=== PATIENT | female | born 1975 | race Caucasian/White ===

== ENCOUNTER 2021-01-01 08:13 | Observation (INO) ==
[2021-01-01] MEDS ORDERED: MAGNESIUM HYDROXIDE SUSP 30 ML UDC PO PRN (10:33)
[2021-01-01] MEDS ORDERED: ONDANSETRON INJ 2 MG/ML 2 ML VIAL IV PRN (10:33)
[2021-01-01] MEDS ORDERED: ACETAMINOPHEN 325 MG TAB PO PRN (10:33)
[2021-01-01] MEDS ORDERED: ALUMINUM/MAGNESIUM SUSP 30 ML UDC PO PRN (10:33)
[2021-01-01] MEDS ORDERED: NITROGLYCERIN SL 0.4 MG/TAB TAB SL PRN (10:33)
[2021-01-01] MEDS ORDERED: POLYETHYLENE (MIRALAX) 17 GM PACK PO PRN (10:33)
[2021-01-01] MEDS ORDERED: PATIENT'S HEIGHT AND/OR WEIGHT NEEDED SCH (10:45)
[2021-01-01] MEDS ORDERED: METOPROLOL SUCC 25MG EXT REL TAB PO SCH (10:45)
[2021-01-01] MEDS ORDERED: ASPIRIN 81 MG ECTAB PO SCH (10:45)
[2021-01-01] MEDS ORDERED: SODIUM CHLORIDE 0.9% 1000ML 1,000 ML IV SCH (10:45)
--- NOTE | 2021-01-01 10:58 | History & Physical Report ---
Date of Service January 01, 2021 Assessment & Plan (1) Chest pain: Presents with chest pressure associated with sinus tachycardia, subtle ST depressions inf-lat leads on outside ECG With recent abnormal dobutamine stress as outpt and progressive RIZZO since 06/2020 Risk factors of CAD are HTN, morbid obesity Initial troponin negative at -admit to PCU -plan for cardiac cath today -continue heparin gtt until cath -continue ASA 81mg daily -check serial trops -check lipid panel, HgbA1C -continue Toprol XL 100mg daily (Cardio notes say should be 100 bid but pt only taking it once daily?) -continue tele monitoring for ST, watch for tachyarrhythmias (2) Dyspnea: chronic and progressive since 06/2020 when she had COVID saw PULM as outpt and had normal PFTs as per pt Arnuity Ellipta was used but made no difference and has since been discontinued -may be cardiac related-cath today also may be related to ongoing anemia from menorrhagia (3) Paroxysmal supraventricular tachycardia: mintor on tele continue metoprolol-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[employer] (4) Anxiety: not currently on meds, recently stopped Trileptal as caused excessive lethargy (5) BMI 50.0-59.9, adult: BMI 55.7 Was being evaluated for gastric sleeve surgery as outpt (6) Depression: as above in Anxiety (7) Fatty infiltration of liver: needs weight loss follow LFTs (8) GERD (gastroesophageal reflux disease): continue PPI (9) Hypertension: BPs elevated here continue metoprolol hold HCTZ for now for cath (10) Hypoglycemia: reports this at home follow venous glucose here in AM (11) Hypothyroidism (acquired): TSH 4 in 08/2020 no longer taking LT4 (12) Incisional hernia: not incarcerated on exam here has plans for surgical fixation after gastric sleeve as outpt (13) Mixed hyperlipidemia: not on meds check lipid panel (14) Vitamin B12 deficiency: [id number] replacement (15) Vitamin D deficiency: continue replacement as outpt (16) Menorrhagia: was previously on norethindrone but now not due to concern for VTE has plans for hysterectomy after gastric sleeve and hernia repair (17) Anemia: hgb here 10, MCV 82 secondary to meorrhagia contnue ferrous sulfate, Vit C, follows with [facility] may also consider EGD/colonoscopy as outpt (18) DVT prophylaxis: SCDs Dispo-admit to PCU Admission and Anticipated Discharge Date Admission Date: January 01, 2021 History of Present Illness Chief Complaint: Chest pressure Primary Care Provider: Martha Singh, DO This pt is a 45 yo female with a h/o morbid obesity, ?SVT, chronic and progressive RIZZO, PAOLA on CPAP, HTN, hypoglycemia, hypothyroidism not on LT4 replacement, anx/depression, prediabetes, Vit B12 deficiency, GERD, Fe-def anemia 2/2 menorrhagia, who presents as a direct transfer from [facility] for chest pressure and ST depressions in inferior leads on ECG in setting of recently abnormal outpatient dobutamine stress test. SHe reports since having COVID 6 months ago, she has had worsening RIZZO and also has been undergoing preop workup for a gastric sleeve surgery. She had an outpt dobutamine stress in 11/[address] depressions in lateral leads and ST elevation in aVR but no WMAs. She was scheduled for outpt cardiac cath on January 11, but early this AM woke up and started having a rapid heart rate which she reports has been ongoing and intermittent since having COVID. She had an associated central chest pressure, nausea, diaphoresis, and dyspnea. SHe was given NTG, Fentanyl, and ASA 325mg and transferred here. Those interventions mostly relieved her pain but upon arrival here she still had 1/10 chest pressure. She was also on a heparin gtt upon arrival. Allergies Allergy/AdvReac Type Severity Reaction Status Date / Time codeine Allergy Verified 09/21/20 08:29 erythromycin base Allergy Verified 09/21/20 08:29 Home Medications Medication Instructions Recorded Confirmed Type ascorbic acid (vitamin C) 500 mg 500 mg PO DAILY tab 01/18/19 01/01/21 History tablet cholecalciferol (vitamin D3) 1,250 50,000 units PO WEEKLY tab 01/18/19 01/01/21 History mcg (50,000 unit) tablet cyanocobalamin (vitamin B-12) 500 500 mcg PO BID #180 tab 01/18/19 01/01/21 Rx mcg tablet duloxetine 60 mg capsule,delayed 60 mg PO DAILY cap 01/18/19 01/01/21 History release blood-glucose meter #1 ea 12/13/19 09/21/20 Rx lancing device with lancets kit #1 ea 12/13/19 09/21/20 Rx blood sugar diagnostic #100 ea 12/16/19 09/21/20 Rx lancets 33 gauge #100 12/16/19 09/21/20 Rx ferrous sulfate 325 mg PO BID 01/01/21 01/01/21 History hydrochlorothiazide 12.5 mg PO DAILY 01/01/21 01/01/21 History metoprolol succinate 100 mg PO DAILY 01/01/21 01/01/21 History omeprazole 20 mg PO QAM 01/01/21 01/01/21 History Past Med/Surg History Medical History (Updated 01/01/21 @ 12:02 by Christal Pizarro MD) Abdominal pain, LUQ Anemia Anxiety Blood glucose abnormal Cervical pain (neck) Depression Gastric ulcer, unspecified as acute or chronic, without hemorrhage or perforation GERD (gastroesophageal reflux disease) History of hypoglycemia History of osteoarthritis History of scoliosis Hypertension Hypoglycemia Hypothyroidism (acquired) Incisional hernia Menorrhagia Paroxysmal supraventricular tachycardia Prediabetes Vitamin D deficiency Surgical History H/O section x2 H/O hernia repair unbilical Hx of cholecystectomy S/P appendectomy S/P tonsillectomy and adenoidectomy Family History Mother Family history of cardiac disorder Diabetes Hypertension Myocardial infarction Grandmother (Maternal) Family history of cardiac disorder Diabetes Lymphoma Grandmother (Paternal) Diabetes Hypertension Breast cancer Father Diabetes Hypertension Lung cancer Aunt Lymphoma maternal Breast cancer paternal Denies family history of Colon cancer Ovarian cancer Prostate cancer Social History Smoking Status: Never smoker Second Hand Exposure: Yes; Hx Alcohol Use: No Hx Substance Use: No Preferred Language: Fijian Communication Ability: Effective Visual Impairment: No Limitations Hearing Ability: Normal Hood Fitter Required: No Beliefs That Will Affect Care: None marital status: Single Current Living Situation: Family Current Living Situation Comment: 2 children current occupational status: unemployed How many Children do You have: 2 Other Information That Helps Us Care for You: No Feels Safe at Home: Yes Childhood Exposure to Second-Hand Smoke: Yes Diet Comment: Well balanced. caffeine: Yes during the past year weight has: remained stable Dental Care, Regularly: Yes Physical Activity Frequency: 1-2 Times per Week Seatbelt Use: always Sunscreen Use: Yes Assistive Devices: CPAP Review of Systems Review of Systems: All systems reviewed & are unremarkable except as noted in HPI & below Ongoing metromenorrhagia No blood in stool, no changes in bowel habits No fevers/chills Physical Exam Constitutional: WD/WN, vitals as above + morbidly obese Eyes: + anicteric sclerae ENMT: Ears: no hearing impairment Neck: trachea midline, no thyromegaly Respiratory: normal respiratory effort, lungs clear to auscultation Cardiovascular: RRR, no murmur, no edema Chest (Breasts): Chest: normal inspection of chest Gastrointestinal (Abdomen): Inspection/Auscultation: normal bowel sounds; + abdomen abnormal to inspection (large visible hernia RLQ) and abdomen not distended Percussion/Palpation: abdomen soft; abdomen nontender Musculoskeletal: Extremities: extremities normal to inspection; no cyanosis and no clubbing Skin: no rashes, warm and dry Neurologic: moves all extremities and awake; no focal motor deficits Psychiatric: A+Ox3, euthymic affect Lymphatic: no lymphedema Results & Data Results & Data ([facility]) Vital Signs (Past 12 Hours) Vital Signs Temp Resp BP Pulse Ox 01/01/21 10:08 37.2 C 16 138/84 96 Laboratory Results 01/01/21 01/01/21 01/01/21 Range/Units 11:23 11:23 11:23 WBC (4.8-10.8) K/uL RBC (4.2-5.4) M/uL Hgb (12.0-16.0) g/dL Hct (37-47) % MCV (80-100) fL MCH (25-34) pg MCHC (32-36) g/dL RDW Std Deviation (36.4-46.3) fL RDW Coeff of Rhona (11.5-14.5) % Plt Count (130-400) K/uL MPV (7.4-10.4) fL Immature Gran % (Auto) % Neut % (Auto) % Lymph % (Auto) % [place]ro[place]ois % (Auto) % Eos % (Auto) % Baso % (Auto) % Neut # (Auto) (1.4-6.5) K/uL Lymph # (Auto) (1.2-3.4) K/uL [place] # (Auto) (0.11-0.59) K/uL Eos # (Auto) (0-0.5) K/uL Baso # (Auto) (0-0.2) K/uL Immature Gran # (Auto) (0.00-0.02) K/uL APTT 28.4 (21.0-31.0) Seconds PTT Ratio 1.1 Sodium Pending Potassium Pending Chloride Pending Carbon Dioxide Pending Anion Gap Pending BUN Pending Creatinine Pending Est Cr Clr Drug Dosing Pending Est GFR ( Amer) Pending Est GFR (Non-Af Amer) Pending BUN/Creatinine Ratio Pending Glucose Pending Estimat Average Glucose Pending Hemoglobin A1c Pending Calcium Pending Magnesium Pending Total Bilirubin Pending AST Pending ALT Pending Alkaline Phosphatase Pending Troponin I Pending Total Protein Pending Albumin Pending Globulin Pending Albumin/Globulin Ratio Pending Triglycerides Pending Cholesterol Pending LDL Cholesterol, Calc Pending VLDL Cholesterol, Calc Pending HDL Cholesterol Pending Cholesterol/HDL Ratio Pending 01/01/21 Range/Units 11:23 WBC 9.52 (4.8-10.8) K/uL RBC 4.03 L (4.2-5.4) M/uL Hgb 10.9 L (12.0-16.0) g/dL Hct 33.4 L (37-47) % MCV 82.9 (80-100) fL MCH 27.0 (25-34) pg MCHC 32.6 (32-36) g/dL RDW Std Deviation 45.4 (36.4-46.3) fL RDW Coeff of Rhona 14.9 H (11.5-14.5) % Plt Count 302 (130-400) K/uL MPV 9.7 (7.4-10.4) fL Immature Gran % (Auto) 0.5 % Neut % (Auto) 82.0 % Lymph % (Auto) 13.3 % [place]quois % (Auto) 2.7 % Eos % (Auto) 1.2 % Baso % (Auto) 0.3 % Neut # (Auto) 7.80 H (1.4-6.5) K/uL Lymph # (Auto) 1.27 (1.2-3.4) K/uL [place]ois # (Auto) 0.26 (0.11-0.59) K/uL Eos # (Auto) 0.11 (0-0.5) K/uL Baso # (Auto) 0.03 (0-0.2) K/uL Immature Gran # (Auto) 0.05 H (0.00-0.02) K/uL APTT (21.0-31.0) Seconds PTT Ratio Sodium Potassium Chloride Carbon Dioxide Anion Gap BUN Creatinine Est Cr Clr Drug Dosing Est GFR ( Amer) Est GFR (Non-Af Amer) BUN/Creatinine Ratio Glucose Estimat Average Glucose Hemoglobin A1c Calcium Magnesium Total Bilirubin AST ALT Alkaline Phosphatase Troponin I Total Protein Albumin Globulin Albumin/Globulin Ratio Triglycerides Cholesterol LDL Cholesterol, Calc VLDL Cholesterol, Calc HDL Cholesterol Cholesterol/HDL Ratio Diagnostic Findings CXR report from [facility]-normal ECG Additional Comments: ECG at [facility] reviewed-ST, rate 114, mild ST depression inferolat leads Code Status & VTE Plan Code Status FULL CODE VTE Prophylaxis Plan VTE Prophylaxis will be ordered: Yes PG Care Time/CCT Total # of Minutes Spent Total Time Spent with Patient: Total time spent is greater than 50% in coordination of care (as documented) at patient's floor/unit and/or counseling patient: Coding Level of Care Code 43248 Initial Inpt Care Lvl 3 Diagnoses Chest pain R07.9 Dyspnea R06.00 Paroxysmal supraventricular tachycardia I47.1 Anxiety F41.9 BMI 50.0-59.9, adult Z68.43 Depression F32.9 Fatty infiltration of liver K76.0 GERD (gastroesophageal reflux disease) K21.9 Hypertension I10 Hypoglycemia E16.2 Hypothyroidism (acquired) E03.9 Incisional hernia K43.2 Mixed hyperlipidemia E78.2 Vitamin B12 deficiency E53.8 Vitamin D deficiency E55.9 Menorrhagia N92.0 Anemia D64.9 DVT prophylaxis Z29.9
[2021-01-01] MEDS ORDERED: DULoxetine HCL 30 MG CAP PO SCH (11:00)
[2021-01-01] MEDS ORDERED: FLUTICASONE FUROATE 100MCG 14 PUFFS/INHALER INH SCH (11:00)
[2021-01-01 11:38] LABS: Basophils # (auto) 0.03 K/uL (0-0.2); Basophils % (auto) 0.3 %; Eosinophils # (auto) 0.11 K/uL (0-0.5); Eosinophils % (auto) 1.2 %; Hematocrit (blood only) 33.4 % (37-47); Hemoglobin 10.9 g/dL (12.0-16.0); Immature Granulocytes # (auto) 0.05 K/uL (0.00-0.02); Immature Granulocytes % (auto) 0.5 %; Lymphocytes # (auto) 1.27 K/uL (1.2-3.4); Lymphocytes % (auto) 13.3 %; Mean Corpuscular Hgb Conc 32.6 g/dL (32-36); Mean Corpuscular Volume 82.9 fL (80-100); Mean Platelet Volume 9.7 fL (7.4-10.4); Monocytes # (auto) 0.26 K/uL (0.11-0.59); Monocytes % (auto) 2.7 %; Platelet Count 302 K/uL (130-400); RDW Coefficient of Variation 14.9 % (11.5-14.5); RDW Standard Deviation 45.4 fL (36.4-46.3); Red Blood Count 4.03 M/uL (4.2-5.4); White Blood Count 9.52 K/uL (4.8-10.8)
[2021-01-01 11:47] LABS: Partial Thromboplastin Ratio 1.1; Partial Thromboplastin Time 28.4 Seconds (21.0-31.0)
[2021-01-01] MEDS ORDERED: niCARdipine HCL INJ 2.5 MG/ML 10 ML AMP ONE (11:48)
[2021-01-01] MEDS ORDERED: HEPARIN (PORCINE) 1000 UNIT/ML 10 ML (CATH LAB USE ONLY) ONE (11:48)
[2021-01-01] MEDS ORDERED: fentaNYL citrate 100 MCG/2 ML VIAL ONE (11:49)
[2021-01-01] MEDS ORDERED: NITROGLYCERIN/D5W 100MCG/ML 20ML SYR ONE (11:49)
[2021-01-01] MEDS ORDERED: MIDAZOLAM HCL 1 MG/ML 2ML VIAL ONE (11:49)
[2021-01-01 11:55] LABS: Estimated Average Glucose 126 mg/dl
[2021-01-01 12:02] LABS: Alanine Aminotransferase 25 U/L (12-78); Albumin Level 3.3 gm/dl (3.4-5.0); Aspartate Aminotransferase 18 U/L (15-37); BUN Creatinine Ratio 16.3 (10-20); Blood Urea Nitrogen 11 mg/dl (7-18); Calcium 8.9 mg/dl (8.5-10.1); Carbon Dioxide 26 mmol/L (21-32); Chloride 108 mmol/L (98-107); Creatinine Clr Calc Pharmacy 146.5 ml/min; Est GFR (African American) 122.2 ml/min; Est GFR (Non-African American) 105.4 ml/min; Glucose 97 mg/dl (70-99); Potassium 3.8 mmol/L (3.5-5.1); Sodium 139 mmol/L (136-145)
[2021-01-01 12:05] LABS: Albumin Globulin Ratio 0.8 (0.9-2); Alkaline Phosphatase 98 U/L (45-117); Bilirubin,Total 0.3 mg/dl (0.2-1); Chol HDL Ratio 4; Cholesterol 184 mg/dl (0-200); Globulin 3.9 gm/dl (2.5-4.0); HDL Cholesterol 48 mg/dl; LDL Cholesterol Calculated 98 mg/dl; Total Protein 7.2 gm/dl (6.4-8.2); Triglycerides 191 mg/dl (0-150); Troponin I < 0.015 ng/ml (0-0.045); VLDL Cholesterol 38 mg/dl
--- NOTE | 2021-01-01 12:22 | Pre Anesthesia Assessment ---
Date of Service January 01, 2021 Pre Sedation Assessment Vital Signs Temp Pulse Resp BP Pulse Ox 01/01/21 11:39 106 H 18 144/95 H 98 01/01/21 10:08 99.0 F 16 138/84 96 Cardiovascular RRR, no murmur, no edema Respiratory normal respiratory effort, lungs clear to auscultation Pre-Sedation Airway Assessment Smoking Status: Never smoker Hx Sleep Apnea: Yes Hx Difficult Intubation: No Short, Thick Neck: No Thyromental Distance: > or= 3.5 Finger Breadths Oral Cavity: + WNL Mallampati Class: III ASA: ASA2 NPO Status Date of Last Intake of Fluids: 01/01/21 Time of Last Intake of Fluids: 07:00 Date of Last Intake of Solid Food: 12/31/20 Time of Last Intake of Solid Foods: 19:00 Procedure Planning Contraindications for Sedation: none Current Medications Reviewed: Yes Notes The planned sedation has been discussed with the patient. Informed Consent was obtained. I have identified the patient, determined the appropriateness of sedation and have assessed the patient immediately prior to the procedure. All medicine(s) and interventions are by my order.
--- NOTE | 2021-01-01 13:21 | Cardiology Consultation ---
Date of Consultation January 01, 2021 Assessment & Plan (1) Chest pain: 2. Paroxysmal SVT 3. Iron deficiency anemia 4. Hypertension 5. Obesity/PAOLA/prediabetes Patient reportedly with abnormal stress test recently and was to undergo cardiac catheterization. Here today with chest tightness in the setting of tachycardia. Concern for ACS versus symptomatic SVT. Plan to proceed with cardiac catheterization. Further recommendations pending findings. History of Present Illness Attending Physician: Roberto Yun History of Present Illness Ms. Mohan is a 45-year-old woman with a history of SVT, prior abnormal stress test transferred to [facility] for cardiac catheterization in the setting of chest tightness this morning. Other medical history notable for hypertension, obesity, prediabetes, obstructive sleep apnea on CPAP, depression degenerative disc disease/low back pain, iron deficiency anemia in the setting of menorrhagia, multiple hernias. SVT has been a longstanding issue but worse since June 2020 after Covid infection. Reports baseline heart rate elevated into the 100s with heart rates up in the 120s with minimal exertion. She was in high. With her heart rate will go up into the 180s with some associated chest tightness. Metoprolol increased from 50 to 100 mg daily. Was scheduled to get a cardiac cath in January. This morning states she was feeling unwell. When got up heart rate again up to the 180s and felt chest tightness. Symptoms persisted until presented to [place] ED. Improved with nitroglycerin, metoprolol. Has been chest pain- free since. ECG reportedly showed inferior ST depressions. Recent cardiac testing: Echo 11/2020: LVEF 55%, no wall motion abnormalities, estimated PASP 33, mild MR Family history: Mother had heart failure diagnosed in her 50s or 60s. Brother in his 60s recently had a pacemaker implanted. Social history: Quit smoking 18 years ago. She is on disability for chronic back issues. Previously in nursing. Allergies Allergy/AdvReac Type Severity Reaction Status Date / Time codeine Allergy Verified 09/21/20 08:29 erythromycin base Allergy Verified 09/21/20 08:29 Home Medications Medication Instructions Recorded Confirmed Type ascorbic acid (vitamin C) 500 mg 500 mg PO DAILY tab 01/18/19 01/01/21 History tablet cholecalciferol (vitamin D3) 1,250 50,000 units PO WEEKLY tab 01/18/19 01/01/21 History mcg (50,000 unit) tablet cyanocobalamin (vitamin B-12) 500 500 mcg PO BID #180 tab 01/18/19 01/01/21 Rx mcg tablet duloxetine 60 mg capsule,delayed 60 mg PO DAILY cap 01/18/19 01/01/21 History release blood-glucose meter #1 ea 12/13/19 09/21/20 Rx lancing device with lancets kit #1 ea 12/13/19 09/21/20 Rx blood sugar diagnostic #100 ea 12/16/19 09/21/20 Rx lancets 33 gauge #100 ea 12/16/19 09/21/20 Rx ferrous sulfate 325 mg PO BID 01/01/21 01/01/21 History hydrochlorothiazide 12.5 mg PO DAILY 01/01/21 01/01/21 History metoprolol succinate 100 mg PO DAILY 01/01/21 01/01/21 History omeprazole 20 mg PO QAM 01/01/21 01/01/21 History Patient History Medical History (Updated 01/01/21 @ 12:02 by Christal Pizarro MD) Abdominal pain, LUQ Anemia Anxiety Blood glucose abnormal Cervical pain (neck) Depression Gastric ulcer, unspecified as acute or chronic, without hemorrhage or perforation GERD (gastroesophageal reflux disease) History of hypoglycemia History of osteoarthritis History of scoliosis Hypertension Hypoglycemia Hypothyroidism (acquired) Incisional hernia Menorrhagia Paroxysmal supraventricular tachycardia Prediabetes Vitamin D deficiency Surgical History H/O section x2 H/O hernia repair unbilical Hx of cholecystectomy S/P appendectomy S/P tonsillectomy and adenoidectomy Family History Mother Family history of cardiac disorder Diabetes Hypertension Myocardial infarction Grandmother (Maternal) Family history of cardiac disorder Diabetes Lymphoma Grandmother (Paternal) Diabetes Hypertension Breast cancer Father Diabetes Hypertension Lung cancer Aunt Lymphoma maternal Breast cancer paternal Denies family history of Colon cancer Ovarian cancer Prostate cancer Social History Smoking Status: Never smoker Second Hand Exposure: Yes; Hx Alcohol Use: No Hx Substance Use: No Preferred Language: [place] Islander Communication Ability: Effective Visual Impairment: No Limitations Hearing Ability: Normal Arcgis Developer Required: No Beliefs That Will Affect Care: None marital status: Single Current Living Situation: Family Current Living Situation Comment: 2 children current occupational status: unemployed How many Children do You have: 2 Other Information That Helps Us Care for You: No Feels Safe at Home: Yes Childhood Exposure to Second-Hand Smoke: Yes Diet Comment: Well balanced. caffeine: Yes during the past year weight has: remained stable Dental Care, Regularly: Yes Physical Activity Frequency: 1-2 Times per Week Seatbelt Use: always Sunscreen Use: Yes Assistive Devices: CPAP Review of Systems Review of Systems: All systems reviewed & are unremarkable except as noted in HPI & below Physical Exam Physical Exam: General: Comfortable, no acute distress HEENT: Sclerae anicteric, mucous membranes moist Lungs: Clear to auscultation bilaterally, no rhonchi or wheezes Cardiac: Regular rate and rhythm, no murmurs. No JVD. Abdomen: Soft, nontender, nondistended, positive bowel sounds. Extremities: Warm, well perfused, no edema. 2+ radial pulses Skin: No rashes or lesions. Neuro: Nonfocal Psych: Alert orient x3, normal affect and mood Results & Data ([facility]) Vital Signs (Past 12 Hours) Vital Signs Temp Pulse Pulse Resp BP Pulse Ox 01/01/21 11:39 106 H 18 144/95 H 98 01/01/21 11:11 93 H 01/01/21 10:08 99.0 F 16 138/84 96 Laboratory Results ECG shows sinus rhythm, no ST abnormalities. PG Care Time/CCT Total # of Minutes Spent Total Time Spent with Patient: Total time spent is greater than 50% in coordination of care (as documented) at patient's floor/unit and/or counseling patient: Coding Level of Care Code 80123 Inpt Consult Level 4 Diagnoses Chest pain R07.9
--- NOTE | 2021-01-01 13:28 | Post Anesthesia Assessment ---
Date of Service January 01, 2021 Post Sedation Assessment Vital Signs Temp Pulse Pulse Resp BP Pulse Ox 01/01/21 13:15 86 16 134/80 98 01/01/21 13:00 86 16 151/84 H 98 01/01/21 11:39 106 H 18 144/95 H 98 01/01/21 11:11 93 H 01/01/21 10:08 99.0 F 16 138/84 96 Recovery Score Activity: Moves 4 extremities Respiration: Deep Breath/Cough Circulation: +/-20% PreAnes Value Consciousness: Fully Awake Oxygen Saturation: > 92% On Room Air Post Anesthesia Score: 10 Discharge Sedation Level of Care: Fast Track Phase II Post Sedation Plan On clinical assessment, the patient appears to have tolerated the sedation without complications. Patient is recovering as anticipated. Patient will continue to be monitored by nursing and may be discharged when sedation discharge criteria are met per below protocol. Upon Completions of procedure up to 15 minutes continue every 5 minute vital signs and the P.A.R. score; then discharge to a Phase I or Fast Track to Phase II per the following guidelines: * Discharge Patient to appropriate Phase II area if PAR is 8 or greater or return to pre- procedure baseline. The post - procedure orders will be as directed. * If PAR score is less than 8 or not return to pre-procedure baseline then patient will follow Phase I monitoring till PAR is reached for Phase II. The Phase I may be done in procedure room or may call to secure a Phase I area. * If naloxone or flumazenil are used for reversal, hold in Phase I for continued monitoring from when last reversal dose was given for a minimum of 60 minutes or longer pending the nurse and/or physician discretion of patient condition before discharge to Phase II. Please call the Sedation Physician to re-evaluate and complete post-note for discharge to Phase II area. Do NOT discharge from procedure sedation or Phase 1 until post- sedation evaluation note is complete by procedure /sedation MD Sedation Discharge Instructions to be given to the patient at discharge to home.
--- NOTE | 2021-01-01 13:36 | Cardiac Catheterization ---
[facility] Data: Check Airman Cardiac Status Clinical evaluation leading to the procedure CAD Presenation: Positive Stress Test and Unstable angina Anginal Classification: CCS IV Heart Failure: No Cardiogenic Shock within 24 Hours: No Cardiac Arrest within 24 Hours: No Imaging Studies Past 6 Months: Yes Stress Studies Past 6 Months: Yes Stress Echocardiogram: Yes - Positive Diagnostic Physicians Name: Miguel Adams MD Status: Elective Closure Device Percutaneous Entry Location: Radial Closure Device: Radial Band Recommendations: Medical Therapy and/or Counseling Intraprocedure Events Significant Disection: No Perforation: No Cardiac Cath Procedure Full Procedure Date January 01, 2021 Pre-Procedure Diagnosis Pre-Procedure Diagnosis: Acute Coronary Syndrome AUC Score AUC Score: 7 Post-Procedure Diagnosis Post-Procedure Diagnosis: Normal Coronary Arteries and Normal Intracardiac Pressures Procedure(s) Performed Procedure(s) Performed: Coronary Angiography and Left Heart Cath Diagnostic Assistant Miguel Adams MD Slicing Machine Feeder(s) Harshil Estimated Blood Loss Estimated Blood Loss: 5 Medication(s) Medication(s): Fentanyl, Heparin, Lidocaine 1%, Nicardipine, Nitroglycerin and Versed Summary of Findings Indication: Suspected ACS, abnormal stress test Access: 6 Fr right radial artery Catheters: [place] Findings: LM -large caliber, no significant disease LAD - Large caliber, no significant disease, distal vessel rupture and apex. Large D1 without disease. Ramusmedium caliber, luminal irregularities at ostium, remainder of vessel without significant disease. Circumflex - Medium caliber, no significant disease. Medium OM1 without disease. RCA -dominant, large caliber, no significant disease LVEDP -7 Arterial Closure: TR band Summary: 1. Angiographically normal coronary arteries 2. Normal intracardiac filling pressure Recommendations: Further management of SVT and ASCVD risk factor modification per Dr. Daigle Hemodynamics Rest Ao:: 164/101/127 Final Ao: 160/96/125 LV: 150/7 Recommendations Recommendations: Medical Therapy and/or Counseling Specimens Specimens: None Radiation Exposure (mGy) 832 Contrast (mls) 45 Drains Drains: none Anesthesia moderate [id number] Procedural Complication(s) None Disposition PCU I attest to the content of the Intraoperative Record and any orders documented therein. Any exceptions are noted below. [place] [employer] Card Cath Procedure Codes Cardiac Catheterization Procedure 1: Cardiovascular Cath Procedures: 26669 Coronaries and LHC (+/-LV) Moderate Sedation Procedure 1: Sedation/Anesthesia: 28243 Mod Sedation by the same physician;Init15 Min Child Age 5 & Up PG Care Time/CCT Total # of Minutes Spent Total Time Spent with Patient: Total time spent is greater than 50% in coordination of care (as documented) at patient's floor/unit and/or counseling patient:
[2021-01-01] MEDS: DULoxetine HCL 30 MG CAP PO SCH (13:38)
[2021-01-01] MEDS: METOPROLOL SUCC 50MG EXT REL TAB PO SCH (14:17)
[2021-01-01] MEDS: FERROUS SULFATE 325 MG TAB PO SCH (16:27)
[2021-01-01] MEDS ORDERED: MoRPHine SULFATE 2 MG/ML CARP IV PRN (18:21)
[2021-01-01] MEDS: CYANOCOBALAMIN 500 MCG TABLET (VITAMIN B-12) PO SCH (20:43)
[2021-01-01] MEDS ORDERED: OXcarbazepine 150 MG TABLET PO SCH (21:00)
[2021-01-02 06:05] LABS: Basophils # (auto) 0.03 K/uL (0-0.2); Basophils % (auto) 0.3 %; Eosinophils # (auto) 0.18 K/uL (0-0.5); Eosinophils % (auto) 1.9 %; Hematocrit (blood only) 31.5 % (37-47); Hemoglobin 10.3 g/dL (12.0-16.0); Immature Granulocytes # (auto) 0.04 K/uL (0.00-0.02); Immature Granulocytes % (auto) 0.4 %; Lymphocytes % (auto) 12.4 %; Mean Corpuscular Hemoglobin 26.6 pg (25-34); Mean Corpuscular Hgb Conc 32.7 g/dL (32-36); Mean Corpuscular Volume 81.4 fL (80-100); Mean Platelet Volume 9.6 fL (7.4-10.4); Monocytes # (auto) 0.51 K/uL (0.11-0.59); Monocytes % (auto) 5.3 %; Neutrophils % (auto) 79.7 %; Platelet Count 280 K/uL (130-400); RDW Coefficient of Variation 15.2 % (11.5-14.5); RDW Standard Deviation 44.9 fL (36.4-46.3); Red Blood Count 3.87 M/uL (4.2-5.4); White Blood Count 9.66 K/uL (4.8-10.8)
[2021-01-02] MEDS ORDERED: LEVOTHYROXINE SODIUM 50 MCG TABLET PO SCH (06:30)
[2021-01-02 06:34] LABS: Albumin Level 3.2 gm/dl (3.4-5.0); BUN Creatinine Ratio 16.7 (10-20); Calcium 8.7 mg/dl (8.5-10.1); Creatinine Clr Calc Pharmacy 149.6 ml/min; Est GFR (African American) 123.4 ml/min; Est GFR (Non-African American) 106.5 ml/min; Magnesium 2.1 mg/dl (1.8-2.4); Potassium 3.4 mmol/L (3.5-5.1)
[2021-01-02 06:37] LABS: Albumin Globulin Ratio 0.9 (0.9-2); Bilirubin,Total 0.4 mg/dl (0.2-1); Globulin 3.7 gm/dl (2.5-4.0); Total Protein 6.9 gm/dl (6.4-8.2)
[2021-01-02] MEDS: CYANOCOBALAMIN 500 MCG TABLET (VITAMIN B-12) PO SCH (08:46)
[2021-01-02] MEDS: DULoxetine HCL 30 MG CAP PO SCH (08:47)
[2021-01-02] MEDS: FERROUS SULFATE 325 MG TAB PO SCH ×2 (08:48→17:38)
[2021-01-02] MEDS: METOPROLOL SUCC 50MG EXT REL TAB PO SCH (08:48)
[2021-01-02] MEDS ORDERED: hydroCHLOROthiazide 25 MG TAB PO SCH (09:00)
[2021-01-02] MEDS ORDERED: DULoxetine HCL 60 MG CAP PO SCH (09:00)
[2021-01-02] MEDS ORDERED: ASCORBIC ACID 500 MG TAB PO SCH (09:00)
[2021-01-02] MEDS ORDERED: PANTOprazole 40 MG TAB PO SCH (09:00)
[2021-01-02] MEDS ORDERED: POTASSIUM CHLORIDE CRTAB 20 MEQ TABCR PO STA (16:27)
--- NOTE | 2021-01-03 08:57 | Electrocardiogram Report ---
Test Reason : Blood Pressure : / mmHG Vent. Rate : 084 BPM Atrial Rate : 084 BPM P-R Int : 140 ms QRS Dur : 090 ms QT Int : 382 ms P-R-T Axes : 059 027 015 degrees QTc Int : 451 ms Normal sinus rhythm Normal ECG No previous ECGs available Confirmed by Joe Barcenas ([id number]) on 01/03/2021 8:57:20 AM Referred By: Roberto Yun Confirmed By:Joe Barcenas
--- NOTE | 2021-01-03 11:27 | Electrocardiogram Report ---
Test Reason : Blood Pressure : / mmHG Vent. Rate : 081 BPM Atrial Rate : 081 BPM P-R Int : 138 ms QRS Dur : 090 ms QT Int : 392 ms P-R-T Axes : 056 038 022 degrees QTc Int : 455 ms Normal sinus rhythm Normal ECG When compared with ECG of 01-JAN-2021 10:49, (unconfirmed) No significant change was found Confirmed by Joe Barcenas ([id number]) on 01/03/2021 11:27:18 AM Referred By: Roberto Yun Confirmed By:Joe Barcenas
--- NOTE | 2021-01-03 13:47 | Electrocardiogram Report ---
Test Reason : Blood Pressure : / mmHG Vent. Rate : 083 BPM Atrial Rate : 083 BPM P-R Int : 140 ms QRS Dur : 086 ms QT Int : 408 ms P-R-T Axes : 076 074 050 degrees QTc Int : 479 ms Normal sinus rhythm Normal ECG When compared with ECG of 01-JAN-2021 18:20, (unconfirmed) No significant change was found Confirmed by Joe Barcenas ([id number]) on 01/03/2021 1:47:08 PM Referred By: Roberto Yun Confirmed By:Joe Barcenas
--- NOTE | 2021-01-04 11:57 | Discharge Summary ---
Date of Service January 02, 2021 Admission HPI Per Admitting Provider This pt is a 45 yo female with a h/o morbid obesity, ?SVT, chronic and progressive RIZZO, PAOLA on CPAP, HTN, hypoglycemia, hypothyroidism not on LT4 replacement, anx/depression, prediabetes, Vit B12 deficiency, GERD, Fe-def anemia 2/2 menorrhagia, who presents as a direct transfer from [facility] for chest pressure and ST depressions in inferior leads on ECG in setting of recently abnormal outpatient dobutamine stress test. SHe reports since having COVID 6 months ago, she has had worsening RIZZO and also has been undergoing preop workup for a gastric sleeve surgery. She had an outpt dobutamine stress in 11/[address] depressions in lateral leads and ST elevation in aVR but no WMAs. She was scheduled for outpt cardiac cath on January 11, but early this AM woke up and started having a rapid heart rate which she reports has been ongoing and intermittent since having COVID. She had an associated central chest pressure, nausea, diaphoresis, and dyspnea. SHe was given NTG, Fentanyl, and ASA 325mg and transferred here. Those interventions mostly relieved her pain but upon arrival here she still had 1/10 chest pressure. She was also on a heparin gtt upon arrival. Principal Diagnosis chest pain Discharge Exam Constitutional: WD/WN, vitals as above + morbidly obese Neck: trachea midline, no thyromegaly Respiratory: normal respiratory effort, lungs clear to auscultation Cardiovascular: RRR, no murmur, no edema Chest (Breasts): Chest: normal inspection of chest Gastrointestinal (Abdomen): Inspection/Auscultation: normal bowel sounds; + abdomen abnormal to inspection (large visible hernia RLQ) and abdomen not distended Percussion/Palpation: abdomen soft; abdomen nontender Musculoskeletal: Extremities: extremities normal to inspection; no cyanosis and no clubbing Skin: no rashes, warm and dry Neurologic: moves all extremities and awake Psychiatric: A+Ox3, euthymic affect Lymphatic: no lymphedema Discharge Data Allergies Allergy/AdvReac Type Severity Reaction Status Date / Time codeine Allergy Verified 09/21/20 08:29 erythromycin base Allergy Verified 09/21/20 08:29 Consultations 01/01/21 10:33 Consult Cardiology Routine Procedures Performed Operation Date: 01/01/21 12:00 Actual Procedures p Cath, Left with Cors and Vent - David Adams MD s Cineradiography w/Routine Exam - David Adams MD Ordered Studies 01/01/21 11:27 CL Cath Imgs for PACS use only Routine Hospital Course (1) Chest pain: Presents with chest pressure associated with sinus tachycardia, subtle ST depressions inf-lat leads on outside ECG With recent abnormal dobutamine stress as outpt and progressive RIZZO since 06/2020 Risk factors of CAD are HTN, morbid obesity Initial troponin negative Cardiac cath was completed and was negative. Report summary below: Findings: LM -large caliber, no significant disease LAD - Large caliber, no significant disease, distal vessel rupture and apex. Large D1 without disease. Ramusmedium caliber, luminal irregularities at ostium, remainder of vessel without significant disease. Circumflex - Medium caliber, no significant disease. Medium OM1 without disease. RCA -dominant, large caliber, no significant disease LVEDP -7 Arterial Closure: TR band Summary: 1. Angiographically normal coronary arteries 2. Normal intracardiac filling pressure Recommendations: Further management of SVT and ASCVD risk factor modification per Dr. Daigle (2) Dyspnea: chronic and progressive since 06/2020 when she had COVID saw PULM as outpt and had normal PFTs as per pt Arnuity Ellipta was used but made no difference and has since been discontinued Resolved on day of discharge. (3) Paroxysmal supraventricular tachycardia: mintor on tele continue metoprolol-clarify dose with her Se[employer] Mixer (4) Anxiety: not currently on meds, recently stopped Trileptal as caused excessive lethargy (5) BMI 50.0-59.9, adult: BMI 55.7 Was being evaluated for gastric sleeve surgery as outpt (6) Depression: as above in Anxiety (7) Fatty infiltration of liver: needs weight loss follow LFTs (8) GERD (gastroesophageal reflux disease): continue PPI (9) Hypertension: BPs elevated here continue metoprolol hold HCTZ for now for cath (10) Hypoglycemia: reports this at home follow venous glucose here in AM (11) Hypothyroidism (acquired): TSH 4 in 08/2020 no longer taking LT4 (12) Incisional hernia: not incarcerated on exam here has plans for surgical fixation after gastric sleeve as outpt (13) Mixed hyperlipidemia: not on meds (14) Vitamin B12 deficiency: [id number] replacement (15) Vitamin D deficiency: continue replacement as outpt (16) Menorrhagia: was previously on norethindrone but now not due to concern for VTE has plans for hysterectomy after gastric sleeve and hernia repair (17) Anemia: hgb here 10, MCV 82 secondary to meorrhagia contnue ferrous sulfate, Vit C, follows with [facility] may also consider EGD/colonoscopy as outpt (18) DVT prophylaxis: SCDs Total Time Total Time Spent Total Time Spent (In Minutes): 32 Total Time Includes: Examination of the Patient, Discharge Planning and Medication Reconciliation Discharge Plan Discharge Items Patient Disposition: Home - Self-Care Reason For Visit: CHEST PAIN, POSSIBLE CARDIAC CATH Discharge Diagnosis: Chest pain Activity: Resume your previous activity Non-emergency contact: Primary Care Provider Call non-emergency contact if: you have any medication questions Follow-up/Referrals: Martha Singh DO [Primary Care Provider] - Diet: Carb Consistent or DM2 Addtl Attending Provider Instructions: You were seen for chest pain. Your cardiac cath was negative. Will increase metoprolol to 75 mg PO BID. Pending Studies at Discharge: No Stand-Alone Forms: My Hud[employer], Smoking Cessation Medications and DC Order Prescriptions: New metoprolol succinate 50 mg tablet extended release 24 hr 50 mg PO BID Qty: 60 RF: 0 metoprolol succinate 25 mg tablet extended release 24 hr 25 mg PO BID Qty: 60 RF: 0 Continued (DME) blood-glucose meter Kit See Rx Instructions .ROUTE .MEDSUPPLY Qty: 1 RF: 0 (DME) lancing device with lancets [[employer] Delica Lanc Device] Kit See Rx Instructions .ROUTE .MEDSUPPLY Qty: 1 RF: 0 (DME) blood sugar diagnostic [OneTouch Ultra Blue Test Strip] Strip See Rx Instructions .ROUTE .MEDSUPPLY Qty: 100 RF: 0 (DME) lancets [OneTouch Delica Lancets] 33 gauge misc See Rx Instructions .ROUTE .MEDSUPPLY Qty: 100 RF: 0 ascorbic acid (vitamin C) 500 mg tablet 500 mg PO DAILY RF: 0 duloxetine 60 mg capsule,delayed release(DR/EC) 60 mg PO DAILY RF: 0 cyanocobalamin (vitamin B-12) 500 mcg tablet 500 mcg PO BID Qty: 180 RF: 3 cholecalciferol (vitamin D3) 50,000 unit tablet 50,000 units PO WEEKLY RF: 0 hydrochlorothiazide 12.5 mg capsule 12.5 mg PO DAILY RF: 0 omeprazole 20 mg capsule,delayed release(DR/EC) 20 mg PO QAM RF: 0 ferrous sulfate 325 mg (65 mg iron) Tablet 325 mg PO BID RF: 0 Discontinued metoprolol succinate 100 mg tablet extended release 24 hr 100 mg PO DAILY RF: 0 No Action potassium chloride 10 mEq tablet extended release 10 meq PO DAILY Qty: 90 RF: 1 Discharge Orders: Discharge Order (Routine); Ordered 01/02/21 Ordered By: Roberto Balderas/Other Patient Handouts: Prediabetes, 5 Steps for Eating Healthier, A1C Admission Data Admit Date/Time: 01/01/21 10:33 Attending Provider: Roberto Yun Admit Provider: Roberto Yun Primary Care Provider: Martha Singh Other Providers: David Adams Other Interventions: Discharge Summary Assessment (RN) Last Done: 01/02/21 18:49 Coding Level of Care Code 48489 OBS Care - Discharge Diagnoses Chest pain R07.9 Dyspnea R06.00 Paroxysmal supraventricular tachycardia I47.1 Anxiety F41.9 BMI 50.0-59.9, adult Z68.43 Depression F32.9 Fatty infiltration of liver K76.0 GERD (gastroesophageal reflux disease) K21.9 Hypertension I10 Hypoglycemia E16.2 Hypothyroidism (acquired) E03.9 Incisional hernia K43.2 Mixed hyperlipidemia E78.2 Vitamin B12 deficiency E53.8 Vitamin D deficiency E55.9 Menorrhagia N92.0 Anemia D64.9 DVT prophylaxis Z29.9
== END 2021-01-02 20:38 | disposition home or self-care (01) ==
LOC: 2S 10:04 → SUATTDRO 10:04 → INTOOBSV 10:33
DX: Z88.5 Allergy status to narcotic agent; Z88.1 Allergy status to other antibiotic agents; Z87.891 Personal history of nicotine dependence; Z79.899 Other long term (current) drug therapy; E03.9 Hypothyroidism, unspecified; E55.9 Vitamin D deficiency, unspecified; E66.01 Morbid (severe) obesity due to excess calories; Z20.822 Contact with and (suspected) exposure to COVID-19; K76.0 Fatty (change of) liver, not elsewhere classified; Z68.43 Body mass index [BMI] 50.0-59.9, adult; R07.9 Chest pain, unspecified; K21.9 Gastro-esophageal reflux disease without esophagitis; R06.00 Dyspnea, unspecified; I47.1 Supraventricular tachycardia; Z99.89 Dependence on other enabling machines and devices; Z86.16 Personal history of COVID-19; D50.9 Iron deficiency anemia, unspecified; G47.33 Obstructive sleep apnea (adult) (pediatric); E53.8 Deficiency of other specified B group vitamins; I10 Essential (primary) hypertension